=== PATIENT | male | born 1960 | race Two or more races ===

== ENCOUNTER 2023-03-23 14:25 | Inpatient (IN) | payer MEDICAID, OTHER ==
[~2023-03-23] VITALS: Ht 185.4 cm; Wt 76.9 kg
[2023-03-23 15:22] LABS: Basophils # (auto) 0.1 10 ^3/uL (0-0.2); Basophils % (auto) 0.7 % (0.0-2.0); Eosinophils # (auto) 0.1 10 ^3/uL (0-0.8); Eosinophils % (auto) 0.8 % (0.0-7.0); Hematocrit 41.3 % (41.0-53.0); Hemoglobin 14.1 g/dL (13.5-17.5); Lymphocytes # (auto) 4.4 10 ^3/uL (0.4-5.4); Lymphocytes % (auto) 49.8 % (10.0-50.0); Mean Corpuscular Hgb Conc. 34.2 g/dL (32.0-36.0); Mean Corpuscular Volume 84.9 fL (80.0-100.0); Monocytes # (auto) 0.6 10 ^3/uL (0-1.3); Monocytes % (auto) 6.9 % (0.0-12.0); Neutrophils # (auto) 3.7 10 ^3/uL (1.6-8.6); Neutrophils % (auto) 41.8 % (37.0-80.0); Nucleated Red Blood Cells % 0.1 %; Red Blood Cells 4.87 10^6/uL (4.5-5.90); Red Cell Distribution Width 15.9 % (11.8-14.3); White Blood Cell 8.9 10^3/uL (4.4-10.8)
[2023-03-23 15:33] LABS: Urine Bacteria NONE SEEN /hpf (None Seen); Urine Blood Negative /uL (Negative); Urine Mucus FEW (None Seen); Urine Specific Gravity 1.041 (1.001-1.035); Urine WBC 2 /hpf (0 - 3)
[2023-03-23 15:39] LABS: Albumin 2.9 g/dL (3.4-5.0); Calcium 9.4 mg/dL (8.5-10.1); Potassium 3.8 mmol/L (3.5-5.1)
[2023-03-23 15:43] LABS: BUN/Creatinine Ratio 17.2 (10.0-20.0); Bilirubin, Total 20.1 mg/dL (0.2-1.0); Total Protein 6.6 g/dL (6.4-8.2)
[2023-03-23 16:40] LABS: INR 0.99 (0.9-1.15)
[2023-03-23] MEDS ORDERED: SODIUM CHLORIDE 0.9% 1,000 ML IV ONE (19:15)
[2023-03-23] MEDS ORDERED: DEXTROSE (50%) 50ML SYRG IV PRN (19:15)
[2023-03-23] MEDS ORDERED: ACETAMINOPHEN 325 MG TAB PO PRN (19:15)
[2023-03-23] MEDS ORDERED: PANTOPRAZOLE 40 MG/10 ML VIAL INJ IV ONE (19:15)
[2023-03-23 20:20] LABS: INR 0.99 (0.9-1.15)
[2023-03-23 20:40] LABS: Amylase 52 U/L (25-115); Lipase 697 U/L (73-393)
[2023-03-24] MEDS: ACCU-CHEK COMFORT CURVE STRIP VI SCH ×5 (04:27→22:24)
[2023-03-24] MEDS: SODIUM CHLORIDE 0.9% 1,000 ML IV SCH ×3 (04:27→22:24)
[2023-03-24] MEDS: InsuLIN REG 1unit/0.01ml Soln (100units/ml) SC SCH ×5 (04:27→22:54)
[2023-03-24 05:30] LABS: Urine Bacteria NONE SEEN /hpf (None Seen); Urine Blood Negative /uL (Negative); Urine Specific Gravity 1.022 (1.001-1.035); Urine WBC 2 /hpf (0 - 3)
[2023-03-24 07:51] LABS: Albumin 2.9 g/dL (3.4-5.0); Calcium 9.2 mg/dL (8.5-10.1)
[2023-03-24 08:03] LABS: BUN/Creatinine Ratio 21.5 (10.0-20.0); Bilirubin, Total 19.9 mg/dL (0.2-1.0); Total Protein 6.5 g/dL (6.4-8.2)
[2023-03-24 08:13] LABS: Mean Corpuscular Hgb Conc. 34.2 g/dL (32.0-36.0); Mean Corpuscular Volume 84.9 fL (80.0-100.0); Red Blood Cells 4.82 10^6/uL (4.5-5.90); Red Cell Distribution Width 16.1 % (11.8-14.3); White Blood Cell 7.3 10^3/uL (4.4-10.8)
[2023-03-24 08:16] LABS: Basophils % (manual) 0 (0.0-2.0); Blast Cells 0; Metamyelocytes % 0; Myelocytes % 0; Promyelocytes % 0; Reactive Lymphocytes 0
[2023-03-24] MEDS: PANTOPRAZOLE 40 MG/10 ML VIAL INJ IV SCH (11:17)
[2023-03-24 12:09] LABS: Hepatitis B Surface Antibody Negative (Negative)
[2023-03-24 12:18] LABS: Hepatitis A Total Antibody Positive (Negative)
[2023-03-24 12:49] LABS: Hepatitis A Ab IgM Negative
[2023-03-24 12:50] LABS: Hepatitis B Core IgM Negative
[2023-03-24 12:51] LABS: Hepatitis C Antibody Negative (Negative)
[2023-03-24 13:02] LABS: Band Neutrophils % (manual) 4; Eosinophils % (manual) 1 (0-7); Lymphocytes % (manual) 14 (10.0-50.0); Monocytes % (manual) 5 (0-12)
[2023-03-24 15:08] LABS: Hepatitis C Antibody Negative (Negative)
[2023-03-24 22:00] VITALS: BP 111/79
[2023-03-24 22:58] VITALS: BP 111/79
[2023-03-25 04:45] VITALS: BP 125/89
[2023-03-25] MEDS: ACCU-CHEK COMFORT CURVE STRIP VI SCH ×4 (06:21→21:29)
[2023-03-25] MEDS: InsuLIN REG 1unit/0.01ml Soln (100units/ml) SC SCH ×4 (06:22→21:55)
[2023-03-25] MEDS ORDERED: OMEP20TA PO (07:37)
[2023-03-25 08:30] VITALS: BP 122/78
[2023-03-25] MEDS: PANTOPRAZOLE 40 MG/10 ML VIAL INJ IV SCH (09:26)
[2023-03-25 12:30] VITALS: BP 155/79
[2023-03-25] MEDS: SODIUM CHLORIDE 0.9% 1,000 ML IV SCH (12:48)
[2023-03-25 17:00] VITALS: BP 115/84
[2023-03-25 23:29] VITALS: BP 113/76
[2023-03-26] VITALS (7 sets, daily range): BP systolic 117–130; BP diastolic 80–83
[2023-03-26] MEDS: SODIUM CHLORIDE 0.9% 1,000 ML IV SCH (00:42)
[2023-03-26 05:50] LABS: Albumin 2.5 g/dL (3.4-5.0); Calcium 8.8 mg/dL (8.5-10.1); Potassium 3.8 mmol/L (3.5-5.1)
[2023-03-26 05:54] LABS: BUN/Creatinine Ratio 17.1 (10.0-20.0); Bilirubin, Total 15.9 mg/dL (0.2-1.0); Total Protein 5.6 g/dL (6.4-8.2)
[2023-03-26] MEDS: ACCU-CHEK COMFORT CURVE STRIP VI SCH ×4 (06:33→21:34)
[2023-03-26] MEDS: InsuLIN REG 1unit/0.01ml Soln (100units/ml) SC SCH ×4 (06:36→21:28)
[2023-03-26] MEDS: PANTOPRAZOLE 40 MG/10 ML VIAL INJ IV SCH (10:00)
[2023-03-27 05:00] VITALS: BP 121/82
[2023-03-27] MEDS: InsuLIN REG 1unit/0.01ml Soln (100units/ml) SC SCH ×2 (06:17→11:41)
[2023-03-27] MEDS: ACCU-CHEK COMFORT CURVE STRIP VI SCH ×2 (06:20→11:28)
[2023-03-27 08:20] VITALS: BP 131/88
[2023-03-27 08:21] VITALS: BP 131/88
[2023-03-27] MEDS: PANTOPRAZOLE 40 MG/10 ML VIAL INJ IV SCH (09:40)
[2023-03-27 12:00] VITALS: BP 127/89
[2023-03-27] MEDS ORDERED: LANC-347 XX (12:40)
[2023-03-27] MEDS ORDERED: SITA50TA PO (12:40)
[2023-03-27] MEDS ORDERED: BLOO1KIT60 XX (12:40)
[2023-03-27] MEDS ORDERED: OMEP20TA PO (12:40)
[2023-03-27 15:06] VITALS: BP 131/88
== END 2023-03-27 16:15 | disposition home or self-care (01) | DRG 282 ==
LOC: ER 14:25 → OVERFLOW 19:16 → CENTRAL 03-24 21:22
PROVIDERS: ADMIT Nurse Practitioner Family; ATTEND Hospitalist
DX: K86.89 Other specified diseases of pancreas (principal); E46 Unspecified protein-calorie malnutrition; R17 Unspecified jaundice; F17.290 Nicotine dependence, other tobacco product, uncomplicated; E11.65 Type 2 diabetes mellitus with hyperglycemia; Z87.11 Personal history of peptic ulcer disease; Z80.7 Family history of other malignant neoplasms of lymphoid, hematopoietic and related tissues; Z80.8 Family history of malignant neoplasm of other organs or systems; Z79.899 Other long term (current) drug therapy; Z68.22 Body mass index [BMI] 22.0-22.9, adult
CPT/HCPCS: 36415; 71046; 74176; 74181; 76705; 80053; 80074; 81001; 82140; 82150; 82378; 82962; 83036; 83605; 83690; 85007; 85025; 85027; 85610; 86301; 86304; 86704; 86706; 86708; 86803; 87340; C9113; G0378; J1815